=== PATIENT | female | born 1980 | race Caucasian/White ===

== ENCOUNTER → 2022-05-10 10:28 | Outpatient (BNVA) | payer MEDICAID, SELFPAY | PROVIDERS: Family Provider Physician Assistant; PCP Family Medicine; Visit Provider Internal Medicine | DX: R50.9 Fever, unspecified (principal); R21 Rash and other nonspecific skin eruption; R70.0 Elevated erythrocyte sedimentation rate; M45.0 Ankylosing spondylitis of multiple sites in spine; M25.50 Pain in unspecified joint; Z11.1 Encounter for screening for respiratory tuberculosis; Z11.59 Encounter for screening for other viral diseases | CPT/HCPCS: 36415; 73120; 80053; 81003; 82164; 82550; 82657; 82728; 82784; 83516; 83735; 84100; 84155; 84165; 84182; 84439; 84443; 85025; 85651; 86003; 86008; 86036; 86140; 86160; 86162; 86200; 86235; 86255; 86376; 86431; 86480; 86704; 86803; 86812; 87340; 99204 ==

== ENCOUNTER → 2022-05-17 13:54 | Outpatient (BNVA) | payer MEDICAID, SELFPAY | PROVIDERS: Family Provider Physician Assistant; PCP Family Medicine; Visit Provider Internal Medicine | DX: R50.9 Fever, unspecified (principal); R70.0 Elevated erythrocyte sedimentation rate; M25.50 Pain in unspecified joint; R21 Rash and other nonspecific skin eruption; M77.32 Calcaneal spur, left foot; R93.7 Abnormal findings on diagnostic imaging of other parts of musculoskeletal system; M47.816 Spondylosis without myelopathy or radiculopathy, lumbar region | CPT/HCPCS: 72100; 72202; 73620; 99214 ==

== ENCOUNTER 2022-05-20 15:07 | Outpatient (CLI) | payer MEDICAID, SELFPAY ==
--- NOTE | 2022-05-20 15:30 | XR_ITS ---
WS: [email or web address] SCREENING DEXA SCAN [employer] CLINICAL INFORMATION: R70.0 - Elevated erythrocyte sedimentation rate COMPARISON: None. FINDINGS: The L1-L4 bone mineral density measures 1.369 g/cm2. This corresponds to a T score score of 1.6 and Z score of 0.4. Left femoral neck bone mineral density measures 1.103 g/cm2. This corresponds to a T score of 0.8 and Z score of 0.2. Right femoral neck bone mineral density measures 1.094 g/cm2. This corresponds to a T score 0.7of and Z score of 0.1. Mean femoral neck bone mineral density measures 1.099 g/cm2. This corresponds to a T score of 0.7 and Z score of 0.1. XR/XR DEXA axial skeleton* [id number] IMPRESSION: Normal bone mineralization. Patient's FRAX calculated 10 year probability for major osteoporotic fracture i s 3.5 % and osteoporotic hip fracture is 0.1%.
[2022-05-25 21:04] LABS: Alkaline phosphatase 102 U/L (31-125)
== END 2022-05-20 15:08 | disposition home or self-care (01) ==
LOC: RAD 15:12
PROVIDERS: PCP Family Medicine; Visit Provider Internal Medicine
DX: R70.0 Elevated erythrocyte sedimentation rate (principal)
CPT/HCPCS: 36415; 77080; 82164; 82306; 82310; 82533; 82728; 83540; 83735; 83970; 84075; 84080; 84100; 86618; 86666; 86757

== ENCOUNTER 2022-05-28 09:24 | Outpatient (CLI) | payer MEDICAID, SELFPAY ==
--- NOTE | 2022-05-28 09:31 | XR_ITS ---
WS: [email or web address] EXAMINATION: XR knee RT 1-2V 14870 REASON FOR EXAM: R70.0 - Elevated erythrocyte sedimentation rate COMPARISON: None available. ORDER DATE: 05/28/2022 9:41 AM FINDINGS: There is no sign of any acute osseous or articular abnormality. There is mild tricompartment narrowin g. No sign of joint effusion. There are no specific soft tissue abnormalities. XR/XR knee RT 1-2V [id number] IMPRESSION: Minor tricompartment narrowing.
--- NOTE | 2022-05-28 09:31 | XR_ITS ---
WS: [email or web address] EXAMINATION: XR knee LT 1-2V 38220 REASON FOR EXAM: R70.0 - Elevated erythrocyte sedimentation rate COMPARISON: None available. ORDER DATE: 05/28/2022 9:41 AM FINDINGS: There are marginal osteophytes associated with the tibial spines, patella and other articular margins with medial and patellofemoral compartment narrowing. There is no sign of any acute fracture or disl ocation. A small joint effusion cannot be excluded but there is no evidence of any large effusion XR/XR knee LT 1-2V [id number] IMPRESSION: MEDIAL AND PATELLOFEMORAL COMPARTMENT NARROWING WITH OSTEOARTHRITIC CHANGES.
== END 2022-05-28 09:25 | disposition home or self-care (01) ==
PROVIDERS: PCP Family Medicine; Visit Provider Internal Medicine
DX: M25.562 Pain in left knee (principal); M25.561 Pain in right knee; R70.0 Elevated erythrocyte sedimentation rate
CPT/HCPCS: 73560

== ENCOUNTER 2022-06-09 09:35 | Outpatient (CLI) | payer MEDICAID, SELFPAY ==
--- NOTE | 2022-06-09 09:45 | XR_ITS ---
WS: [email or web address] Exam: XR wrist LT min 3V* [id number] Date/Time of Exam: 06/09/2022 9:45 AM Reason For Exam: M25.539 - Pain in unspecified wrist There are no fractures, soft tissue swelling, or unusual calcifications. The wrist shows normal bony alignment. There is no irregularity of the bony architecture. XR/XR wrist LT min 3V* [id number] IMPRESSION: Negative left wrist.
== END 2022-06-09 09:36 | disposition home or self-care (01) ==
LOC: RAD 09:36
PROVIDERS: PCP Family Medicine; Visit Provider Internal Medicine
DX: M25.532 Pain in left wrist (principal)
CPT/HCPCS: 73110

== ENCOUNTER 2022-07-07 15:44 | Outpatient (CLI) | payer MEDICAID, SELFPAY ==
--- NOTE | 2022-07-07 16:00 | MR_ITS ---
WS: [email or web address] MRI BRAIN WITHOUT CONTRAST HISTORY: R51.9 - Headache, unspecified COMPARISON: None available. TECHNIQUE: Diffusion imaging, multiplanar T1, T2 and FLAIR imaging obtained. No evidence for acute infarct or hemorrhage. Olguin-white matter differentiation is normal. No remote or acute infarcts are volume loss. Ventricles and extra-axial spaces are normal. No inferior displacement of cerebellar tonsils. The sella turcica and pituitary gland are unremarkabl e. Dural venous sinuses and o[place] of [place] demonstrate no abnormality on this unenhanced studies. Paranasal sinuses: Minimal mucoperiosteal thickening RIGHT maxillary sinus. No air-fluid levels. Mastoid air cells: Normal. Calvarium and scalp: Intact. MR/MR head wo con* [id number] IMPRESSION: 1. Unremarkable noncontrast MRI brain. 2. Normal diffusion imaging.
== END 2022-07-07 15:45 | disposition home or self-care (01) ==
LOC: RAD 15:45
PROVIDERS: PCP Family Medicine; Visit Provider Psychiatry & Neurology Neurology
DX: R51.9 Headache, unspecified (principal)
CPT/HCPCS: 70551; 99203

== ENCOUNTER → 2022-07-26 13:44 | Outpatient (BNVA) | payer MEDICAID, SELFPAY | PROVIDERS: PCP Family Medicine; Visit Provider Psychiatry & Neurology Neurology | DX: R51.9 Headache, unspecified (principal); M54.2 Cervicalgia; R21 Rash and other nonspecific skin eruption | CPT/HCPCS: 99212 ==

== ENCOUNTER → 2022-08-26 10:55 | Outpatient (BNVA) | payer MEDICAID, SELFPAY | PROVIDERS: PCP Family Medicine; Visit Provider Internal Medicine | DX: M53.2X8 Spinal instabilities, sacral and sacrococcygeal region (principal); R70.0 Elevated erythrocyte sedimentation rate; M25.569 Pain in unspecified knee; R51.9 Headache, unspecified; R50.9 Fever, unspecified; M25.50 Pain in unspecified joint | CPT/HCPCS: 80053; 82550; 85025; 85651; 86140; 99214 ==

== ENCOUNTER 2022-09-09 08:04 | Outpatient (CLI) | payer MEDICAID, SELFPAY ==
[2022-09-09 08:35] LABS: Basophils # 0.1 10^3/uL (0.0-0.1); Basophils % 0.7 %; Eosinophils # 0.2 10^3/uL (0.0-0.8); Eosinophils % 2.6 %; Hematocrit 40.3 % (37.0-47.0); Hemoglobin 13.2 g/dL (11.5-15.3); Lymphocytes # 2.7 10^3/uL (0.8-4.8); Lymphocytes % 33.4 %; Mean Corpuscular HGB Conc 32.8 g/dL (30.0-36.0); Mean Corpuscular Volume 85.6 fl (81-99); Mean Platelet Volume 8.8 fL (7.4-10.4); Monocytes # 0.5 10^3/uL (0.2-0.9); Monocytes % 6.4 %; Neutrophils % 56.7 %; Nucleated Red Blood Cells % 0 %; Platelet Count 310 10^3/cmm (130-400); Red Blood Count 4.71 10^6/uL (4.1-5.3); Red Cell Distribution Width 13.1 % (12.1-15.1); White Blood Count 8.1 10^3/uL (4.0-10.0)
[2022-09-09 09:00] LABS: Alanine Aminotransferase 7 U/L (0-33); Albumin Level 4.1 g/dL (3.5-5.2); Alkaline Phosphatase 104 U/L (35-105); Anion Gap 13.8 (5-19); Aspartate Amino Transferase 13 U/L (0-32); Blood Urea Nitrogen 11 mg/dL (6-20); C Reactive Protein 9.9 mg/L (0.0-4.9); Calcium 8.8 mg/dL (8.5-10.5); Carbon Dioxide 26 mmol/L (22-29); Chloride 102 mmol/L (98-107); Glomerular Filtration Rate 78.7 mL/min (90-130); Glucose 90 mg/dL (65-115); Osmolality Calculated 285 mOsm/kg (285-295); Potassium 3.8 mmol/L (3.5-5.1); Sodium 138 mmol/L (136-145); Total Bilirubin 0.4 mg/dL (0.15-1.2); Total Protein 7.1 g/dL (6.6-8.7)
[2022-09-09 09:05] LABS: Erythrocyte Sedimentation Rate 14 mm/hr (0-15)
[2022-09-09 09:10] LABS: Cortisol Random 8.51 ug/dL (2.47-19.5)
[2022-09-19 00:55] LABS: 14.3.3 ETA Protein <0.2 ng/mL (<0.2)
== END 2022-09-09 08:05 | disposition home or self-care (01) ==
PROVIDERS: PCP Family Medicine; Visit Provider Internal Medicine
DX: R70.0 Elevated erythrocyte sedimentation rate (principal); M25.569 Pain in unspecified knee; R51.9 Headache, unspecified
CPT/HCPCS: 36415; 80053; 82533; 83520; 85025; 85651; 86140